=== PATIENT | female | born 1970 | race Caucasian/White ===

== ENCOUNTER → 2017-01-08 | Outpatient (CLI) | payer BC | LOC: FIMAGING 11:17 | PROVIDERS: ATTEND Obstetrics & Gynecology | DX: Z12.31 Encounter for screening mammogram for malignant neoplasm of breast (principal) | CPT/HCPCS: G0202 ==

== ENCOUNTER → 2018-02-09 | Outpatient (CLI) | payer BC | LOC: FIMAGING 12:35 | PROVIDERS: ATTEND Obstetrics & Gynecology | DX: Z12.13 Encounter for screening for malignant neoplasm of small intestine (principal) ==

== ENCOUNTER → 2018-06-08 | Outpatient (CLI) | payer BC | LOC: FIMAGING 10:28 | DX: M19.211 Secondary osteoarthritis, right shoulder (principal); M75.41 Impingement syndrome of right shoulder ==

== ENCOUNTER → 2018-06-21 | Outpatient (CLI) | payer BC | LOC: FIMAGING 19:17 | DX: M75.81 Other shoulder lesions, right shoulder (principal); M75.51 Bursitis of right shoulder; M54.2 Cervicalgia ==